=== PATIENT | female | born 1995 | race Caucasian/White ===

== ENCOUNTER 2017-08-02 22:15 | Emergency (ER) | payer OTHER ==
[~2017-08-02] VITALS: Ht 154.9 cm; Wt 85.7 kg
[~2017-08-02 22:15] MED LIST: KET10 PO; LOR5/325 PO; NORE0.352 PO; OXYC-865 PO; PROM-110 PO; PROP10TA58 PO; SUMA20SP8 NS
--- NOTE | 2017-08-02 22:40 | ER Report ---
History and Physical Time Seen By MD: 22:39 Hx. of Stated Complaint: PT REPORTS THAT HER RIGHT ARM HURTS FROM THE SHOULDER DOWN AND IF SHE TRIES TO HOLD IT UP IT GOES NUMB. PAIN STARTED TODAY. SHE ALSO STATES BEING NAUSEATED FOR OVER ONE WEEK. HPI/ROS CHIEF COMPLAINT: Right arm pain HISTORY OF PRESENT ILLNESS: 22-year-old female presents ambulatory to ER complaining of right arm pain for 4 hours. She describes pain starting below the elbow and spreading up her arm. She now notes her arm was numb if she raises it up. Patient recalls no traumatic injury or overuse syndrome. Patient denies recent illness. Patient notes nausea for one week. She notes he 's been severely fatigued and sleeping 18 hours a day. She denies exposure to contact with mononucleosis. Allergies: Coded Allergies: No Known Drug Allergies (Unverified , 08/02/17) Home Meds Active Scripts Ondansetron Hcl (ZOFRAN) 4 Mg Tablet, 4 MG PO Q6H Y for NAUSEA/VOMITING, #15 Prov:ROS LOVE DO 08/03/17 Reported Medications Norethindrone (NORETHINDRONE) 0.35 Mg Tablet, 0.35 MG PO 06/04/17 Sumatriptan (SUMATRIPTAN) 20 Mg Lang[place], 20 MG NS ONCE, SPRAY 06/04/17 Propranolol Hcl (PROPRANOLOL HCL) 10 Mg Tablet, 20 MG PO BID 06/04/17 Discontinued Scripts Oxycodone Hcl/Acetaminophen (PERCOCET 5-325 MG TABLET) 1 Each Tablet, 1 EACH PO Q4H Y for PAIN, #10 TAB Prov:ROS LOVE DO 06/04/17 Promethazine Hcl (PROMETHAZINE HCL) 25 Mg Tablet, 25 MG PO Q4H Y for NAUSEA/ VOMITING, #12 TAB Prov:ROS LOVE DO 06/04/17 Past Medical/Surgical History Migraine headaches Hx Smoking: No Smoking Status: Never Smoker Hx Substance Use Disorder: Yes (POT) Hx Alcohol Use: Yes Constitutional Vital Sign - Last 24 Hours 08/02/17 08/02/17 08/02/17 08/02/17 22:20 22:30 23:00 23:15 Temp 97.8 Pulse 94 89 84 89 Resp 14 B/P (MAP) 183/93 132/84 (100) 126/69 (88) Pulse Ox 95 93 93 O2 Delivery Room Air 08/02/17 08/02/17 08/03/17 08/03/17 23:30 23:45 00:00 00:23 Pulse 72 82 Resp 14 B/P (MAP) 131/68 (89) 122/58 (79) 126/90 (102) Pulse Ox 94 93 O2 Delivery Room Air 08/03/17 00:26 Pulse 86 Resp 14 B/P (MAP) 122/58 (79) Pulse Ox 97 O2 Delivery Room Air Physical Exam General appearance: Alert no distress. Respiratory: Chest is non tender, lungs are clear to auscultation. Cardiac: Regular rate and rhythm Extremities: The right upper treatment. He is neurovascularly intact. Patient insert a strong grasp. There is no pain on passive range of motion of the wrist and elbow. There is some tenderness over the anterior aspect of the shoulder. There is tenderness in the brachial plexus area in the supraclavicular area. There is no lymphadenopathy. On examination of the anterior cervical chain. DIFFERENTIAL DIAGNOSIS: After history and physical exam differential diagnosis was considered for paresthesia, thoracic outlet syndrome, brachial neuritis, tendinitis, muscle strain, impingement syndrome Medical Decision Making Data Points Result Diagram: 08/02/177 08/02/17 2337 Laboratory Hematology Test 08/02/17 00:00 08/02/17 23:37 Urine HCG, Qualitative Negative (NEGATIVE) Red Blood Count 5.25 M/uL (4.17-5.56) Mean Corpuscular Volume 87.3 fL (80.0-96.0) Mean Corpuscular Hemoglobin 29.7 pg (26.0-33.0) Mean Corpuscular Hemoglobin Concent 34.0 g/dL (32.0-36.0) Red Cell Distribution Width 13.3 % (11.5-14.5) Mean Platelet Volume 7.4 fL (7.2-11.1) Neutrophils (%) (Auto) 54.9 % (39.4-72.5) Lymphocytes (%) (Auto) 34.7 % (17.6-49.6) Monocytes (%) (Auto) 7.9 % (4.1-12.4) Eosinophils (%) (Auto) 1.9 % (0.4-6.7) Basophils (%) (Auto) 0.6 % (0.3-1.4) Nucleated RBC Relative Count (auto) 0.0 /100WBC Neutrophils # (Auto) 4.6 K/uL (2.0-7.4) Lymphocytes # (Auto) 2.9 K/uL (1.3-3.6) Monocytes # (Auto) 0.7 K/uL (0.3-1.0) Eosinophils # (Auto) 0.2 K/uL (0.0-0.5) Basophils # (Auto) 0.1 K/uL (0.0-0.1) Nucleated RBC Absolute Count (auto) 0.00 K/uL Sodium Level 140 mmol/L (137-145) Potassium Level 3.8 mmol/L (3.5-5.0) Chloride Level 104 mmol/L (98-107) Carbon Dioxide Level 22 mmol/L (22-31) Blood Urea Nitrogen 18 mg/dl (7-18) Creatinine 0.80 mg/dl (0.52-1.04) Glomerular Filtration Rate Calc > 60.0 Random Glucose 90 mg/dl (75-110) Calcium Level 9.4 mg/dl (8.4-10.2) Total Bilirubin 0.3 mg/dl (0.2-1.3) Aspartate Amino Transf (AST/SGOT) 18 U/L (0-35) Alanine Aminotransferase (ALT/SGPT) 27 U/L (0-56) Alkaline Phosphatase 42 U/L (0-126) C-Reactive Protein < 0.5 mg/dl (<1.0) Total Protein 7.0 gm/dl (6.3-8.2) Albumin 4.1 g/dl (3.5-5.0) Monoscreen Negative (NEGATIVE) Chemistry Test 08/02/17 00:00 08/02/17 23:37 Urine HCG, Qualitative Negative (NEGATIVE) White Blood Count 8.4 k/uL (4.5-11.0) Red Blood Count 5.25 M/uL (4.17-5.56) Hemoglobin 15.6 g/dL (12.0-16.0) Hematocrit 45.8 % (34.0-47.0) Mean Corpuscular Volume 87.3 fL (80.0-96.0) Mean Corpuscular Hemoglobin 29.7 pg (26.0-33.0) Mean Corpuscular Hemoglobin Concent 34.0 g/dL (32.0-36.0) Red Cell Distribution Width 13.3 % (11.5-14.5) Platelet Count 213 K/uL (150-450) Mean Platelet Volume 7.4 fL (7.2-11.1) Neutrophils (%) (Auto) 54.9 % (39.4-72.5) Lymphocytes (%) (Auto) 34.7 % (17.6-49.6) Monocytes (%) (Auto) 7.9 % (4.1-12.4) Eosinophils (%) (Auto) 1.9 % (0.4-6.7) Basophils (%) (Auto) 0.6 % (0.3-1.4) Nucleated RBC Relative Count (auto) 0.0 /100WBC Neutrophils # (Auto) 4.6 K/uL (2.0-7.4) Lymphocytes # (Auto) 2.9 K/uL (1.3-3.6) Monocytes # (Auto) 0.7 K/uL (0.3-1.0) Eosinophils # (Auto) 0.2 K/uL (0.0-0.5) Basophils # (Auto) 0.1 K/uL (0.0-0.1) Nucleated RBC Absolute Count (auto) 0.00 K/uL Glomerular Filtration Rate Calc > 60.0 Calcium Level 9.4 mg/dl (8.4-10.2) Total Bilirubin 0.3 mg/dl (0.2-1.3) Aspartate Amino Transf (AST/SGOT) 18 U/L (0-35) Alanine Aminotransferase (ALT/SGPT) 27 U/L (0-56) Alkaline Phosphatase 42 U/L (0-126) C-Reactive Protein < 0.5 mg/dl (<1.0) Total Protein 7.0 gm/dl (6.3-8.2) Albumin 4.1 g/dl (3.5-5.0) Monoscreen Negative (NEGATIVE) Urinalysis Test 08/02/17 00:00 Urine HCG, Qualitative Negative (NEGATIVE) EKG/Imaging Imaging X-ray: Two-view chest x-ray was obtained. I viewed the images myself on the PACS system. My interpretation of the images is: Infiltrate, no effusion, normal mediastinum. The radiologist interpretation had no clinically significant variation from this interpretation. ED Course/Re-evaluation ED Course Patient was admitted to an examination room. H&P was done. The differential diagnoses was considered. Patient with a nonfocal neurologic right upper extremity examination. Diagnostic studies show a negative mono. A normal WBC count, a normal CRP. A urine test. It's negative. Patient was treated with Zofran orally and ibuprofen 600 milligrams. She reports feeling better. Patient advised to conservative treatment plan of ibuprofen 600 mg 3 times daily. Protection for Zofran was provided. She is advised to follow-up with primary care if unimproved in 3-5 days for further evaluation. Decision to Disposition Date: Aug 03, 2017 Decision to Disposition Time: 00:08 Depart Departure Latest Vital Signs Vital Signs Date Time Temp Pulse Resp B/P (MAP) Pulse Ox O2 Delivery O2 Flow Rate FiO2 08/03/17 00:26 86 14 122/58 (79) 97 Room Air 08/02/17 22:20 97.8 Impression: Primary Impression: Right arm pain Additional Impressions: Brachial neuritis Nausea alone Condition: Improved Disposition: HOME OR SELF-CARE Referrals: DEEJAY BRYAN MD, FARRUKH MD New Scripts Ondansetron Hcl (ZOFRAN) 4 Mg Tablet 4 MG PO Q6H Y for NAUSEA/VOMITING, #15 Prov: ROS LOVE DO 08/03/17 Patient Instructions: Arm Pain (ED) Additional Instructions: Take ibuprofen 200 mg 3 tablets 3 times a day with food Apply heating pad 2 year right upper shoulder and neck area All up with primary care if unimproved in 3-5 days. Problem Qualifiers ROS LOVE DO Aug 02, 2017 22:40
[2017-08-02] MEDS ORDERED: IBUPROFEN 600 MG TAB PO ONE (22:50)
[2017-08-02] MEDS ORDERED: ONDANSETRON 4 MG ODT TABDP SL ONE (22:50)
--- NOTE | 2017-08-02 23:44 | RADIOLOGY IMAGING REPORT ---
FACILITY: [facility] PATIENT NAME: Kami Coobs : 1995 MR: [id number] V: [id number] EXAM DATE: ORDERING PHYSICIAN: ROS LOVE TECHNOLOGIST: Location: [facility] [place] Patient: Kami Cobos : 1995 Visit/Account:[id number] Date of Sevice: 08/02/2017 CHEST PA AND LAT HISTORY: Right arm/chest pain for one day. No history of heart or lung problems. COMPARISON: None. TECHNIQUE: PA and lateral views of the chest. FINDINGS: Pulmonary: Lungs are clear. There is no pneumothorax or pleural effusion. Cardiomediastinal: Cardiac and mediastinal silhouettes are within normal limits. Bones/soft tissues: No acute osseous abnormality. The visible abdomen is normal. IMPRESSION: 1. No acute cardiopulmonary process. Report Dictated By: Jennifer Greer at 08/02/2017 11:38 PM Report E-Signed By: Jennifer Greer at 08/02/2017 11:39 PM WSN:[id number]
[2017-08-02 23:49] LABS: PLATELET COUNT, AUTOMATED 213 K/uL (150-450)
[2017-08-03] MEDS ORDERED: ONDA4TAB97 PO (00:11)
[2017-08-03 00:26] VITALS: BP 122/58
== END 2017-08-03 00:28 | disposition home or self-care (01) ==
LOC: ER 22:37
DX: M54.12 Radiculopathy, cervical region (principal)
CPT/HCPCS: 36415; 71046; 81025; 85025; 86140; 86308; 99283; S0119; 82040; 82247; 82310; 82374; 82435; 82565; 82947; 84075; 84132; 84155; 84295; 84450; 84460; 84520